=== PATIENT | female | born 1980 | race Two or more races ===

== ENCOUNTER 2025-07-01 14:21 | Emergency (ER) | payer OTHER ==
[~2025-07-01] VITALS: Ht 170.2 cm; Wt 122.5 kg
[2025-07-01 15:38] VITALS: BP 125/89; O2SAT 99
[2025-07-01] MEDS ORDERED: BIKTARVY 50-201 EACH (15:40)
[2025-07-01 18:07] LABS: BASO % 0.5 % (0.1-1.2); EOS # 0.38 (0.04-0.54); EOS % 4.0 % (0.7-7.0); LYMPH # 2.51 (1.18-3.74); LYMPH % 26.3 % (19.3-53.1); MEAN PLATELET VOLUME 10.00 fl (9.4-12.4); MONO # 1.03 (0.24-0.82); MONO % 10.8 % (4.7-12.5); NEUT # 5.57 (1.56-6.13); NEUT % 58.2 % (34.0-71.1); RED CELL DISTRIBUTION WIDTH 12.8 % (11.6-14.4)
[2025-07-01 18:18] LABS: COVID-19 AG NEGATIVE (NEGATIVE)
== END 2025-07-01 19:04 | disposition home or self-care (01) ==
LOC: ER 14:21
PROVIDERS: General Practice
DX: J06.9 Acute upper respiratory infection, unspecified (principal); Z20.822 Contact with and (suspected) exposure to COVID-19; Z88.6 Allergy status to analgesic agent; Z88.8 Allergy status to other drugs, medicaments and biological substances; Z87.09 Personal history of other diseases of the respiratory system; B20 Human immunodeficiency virus [HIV] disease

== ENCOUNTER 2025-07-31 08:32 | Emergency (ER) | payer OTHER ==
[~2025-07-31] VITALS: Ht 170.2 cm; Wt 124.7 kg
[~2025-07-31 08:32] MED LIST: BIKTARVY 50-201 EACH
[2025-07-31] MEDS ORDERED: DIPHENHYDRAMINE HCL 50 MG/ML VIAL 1ML IM STA (10:14)
[2025-07-31] MEDS ORDERED: DIPHENHYDRAMINE HCL 50 MG/ML VIAL 1ML ONE (10:17)
[2025-07-31] MEDS ORDERED: FLONASE16 GM NASAL (10:26)
[2025-07-31] MEDS ORDERED: XYZAL5 MG PO (10:26)
[2025-07-31] MEDS ORDERED: AZELASTINE HCL6 ML OP (10:27)
== END 2025-07-31 11:01 | disposition home or self-care (01) ==
LOC: ER 08:32
DX: H10.10 Acute atopic conjunctivitis, unspecified eye (principal); R21 Rash and other nonspecific skin eruption; B20 Human immunodeficiency virus [HIV] disease; Z88.6 Allergy status to analgesic agent